=== PATIENT | male | born 1940 | race Caucasian/White ===

== ENCOUNTER 2023-12-05 16:24 | Outpatient (RCR) | payer MEDICARE, SELFPAY | END 2023-12-05 23:59 | disposition home or self-care (01) | LOC: CRHB 16:24 | PROVIDERS: ATTENDING PHYSICIAN Internal Medicine Cardiovascular Disease | DX: I21.4 Non-ST elevation (NSTEMI) myocardial infarction; I25.10 Atherosclerotic heart disease of native coronary artery without angina pectoris | CPT/HCPCS: G0422; G0423 ==

== ENCOUNTER 2024-01-07 17:08 | Outpatient (RCR) | payer MEDICARE, SELFPAY | END 2024-01-07 23:59 | disposition home or self-care (01) | LOC: CRHB 17:08 | PROVIDERS: ATTENDING PHYSICIAN Internal Medicine Cardiovascular Disease | DX: I21.4 Non-ST elevation (NSTEMI) myocardial infarction (principal) | CPT/HCPCS: G0422; G0423 ==

== ENCOUNTER 2024-01-28 17:05 | Outpatient (RCR) | payer MEDICARE, SELFPAY | END 2024-01-28 23:59 | disposition home or self-care (01) | LOC: CRHB 17:05 | PROVIDERS: ATTENDING PHYSICIAN Internal Medicine Cardiovascular Disease | DX: I21.4 Non-ST elevation (NSTEMI) myocardial infarction (principal); I10 Essential (primary) hypertension; E78.00 Pure hypercholesterolemia, unspecified; I34.0 Nonrheumatic mitral (valve) insufficiency; I34.1 Nonrheumatic mitral (valve) prolapse; R94.31 Abnormal electrocardiogram [ECG] [EKG] | CPT/HCPCS: G0422 ==

== ENCOUNTER 2024-03-07 16:33 | Outpatient (RCR) | payer MEDICARE, SELFPAY | END 2024-03-07 23:59 | disposition home or self-care (01) | LOC: CRHB 16:33 | PROVIDERS: ATTENDING PHYSICIAN Internal Medicine Cardiovascular Disease | DX: I25.10 Atherosclerotic heart disease of native coronary artery without angina pectoris (principal); I25.2 Old myocardial infarction | CPT/HCPCS: 93798; G0422 ==

== ENCOUNTER 2024-03-19 15:27 | Outpatient (RCR) | payer MEDICARE, SELFPAY | END 2024-03-19 23:59 | disposition home or self-care (01) | LOC: CRHB 15:27 | PROVIDERS: ATTENDING PHYSICIAN Internal Medicine Cardiovascular Disease; FAMILY PHYSICIAN Internal Medicine | DX: I25.10 Atherosclerotic heart disease of native coronary artery without angina pectoris (principal); I25.2 Old myocardial infarction | CPT/HCPCS: G0422 ==

== ENCOUNTER → 2024-06-24 17:02 | Outpatient (REF) | payer MEDICARE, SELFPAY | LOC: MRI 17:02 | PROVIDERS: ATTENDING PHYSICIAN Psychiatry & Neurology Neurology; FAMILY PHYSICIAN Internal Medicine | DX: M54.16 Radiculopathy, lumbar region (principal) | CPT/HCPCS: 72148 ==

== ENCOUNTER 2024-09-20 17:23 | Emergency (ER) | payer MEDICARE, SELFPAY ==
[2024-09-20 17:26] VITALS: BP 175/73
--- NOTE | 2024-09-20 21:11 | EDRN ---
Pt slipped on ice and struck his head on a cement pot around 1400. No loc, headache, n/v, visual change, dizziness. Pt feels like his usual self.
[2024-09-20 21:15] VITALS: BP 166/90
--- NOTE | 2024-09-20 21:15 | EDRN ---
Pt's gave pt his nighttime seroquel. She says pt did not have his morning bp medication, will give it to him when he gets home.
--- NOTE | 2024-09-20 21:28 | ED.GENMED ---
History of Present Illness
General
Chief Complaint: Head Injury
Source: patient and spouse
Exam Limitations: none
Time Seen by Provider: 09/20/24 21:17
Nursing documentation reviewed up to this point in time: agreed with
History of Present Illness
History of Present Illness:
Patient currently taking Plavix, presents to ED for evaluation after losing balance and falling forward, hitting top of his head against a cement planter. Patient did not lose consciousness. Patient denies headache or neck pain. Denies dizziness.
Denies nausea or vomiting. Denies loss of sensation or weakness. Per spouse at bedside, patient has been behaving appropriately without any significant change.
Past History
Past History
ED Past Medical History: CAD, GERD, HTN, Hypercholesterolemia, Psychiatric (Bipolar, Depression) and Other (Parkinson's, Dementia, Polio, Diverticulitis, Stomach ulcers)
ED Past Surgical History: Appendectomy, Cardiac (CABG X6) and Other (Hernia repair)
Social History
Tobacco: Former smoker
Alcohol: Daily (Beer 1)
Drug: None
Personal:
Living: with family
Review of Systems
Review of Systems
Allergies reviewed?: Yes
All Other Systems: ROS reviewed and negative except as documented in HPI and ROS
Constitutional: Reports no symptoms
Respiratory: Denies trouble breathing
ABD/GI: Reports no symptoms; Denies nausea or vomiting
Musculoskeletal: Reports no symptoms
Skin: Reports other (scalp abrasion/ecchymosis)
Neurological: Reports no symptoms; Denies dizzy, headache or weakness
Phy Exam
Physical Exam
Physical Exam:
Physical Exam
General: no apparent distress, not acutely ill. afebrile
Head: superficial abrasion noted over top of scalp, without active bleeding.
Neck: supple. normal range of motion
Neuro: alert and oriented x 3. no focal neurological deficits. normal speech. normal gait.
Skin: no rash
Psychiatric: well kept. interactive and cooperative
Extremities: no edema. no calf tenderness.
Course
Orders/Labs/Results
Orders:
Orders
09/20/24 17:25
CT Head W/o Iv Contrast Urgent
Comment:
Reason For Exam: head strike +thinners
Vital Signs
Initial and Last Documented VS:
Initial Vital Signs
Temp Pulse Resp BP Pulse Ox
98.9 F 62 18 175/73 98
09/20/24 17:26 09/20/24 17:26 09/20/24 17:26 09/20/24 17:26 09/20/24 17:26
Last Documented Vital Signs
Temp Pulse Resp BP Pulse Ox
98.9 F 65 16 166/90 97
09/20/24 17:26 09/20/24 21:15 09/20/24 21:15 09/20/24 21:15 09/20/24 21:15
MDM/Problems Addressed
MDM/Problems Addressed:
CT head: No acute findings. Patient otherwise is alert, awake, and oriented, and with steady gait, without any acute distress, at time of discharge. Concussion precautions provided to the patient and his spouse. Advised PCP follow-up with any
further concerns.
*Critical Care Note
Total Time (30-74mins, 75-104mins- exclusive of procedures): Not Applicable
ED Attending Note
-
Portions of this chart may have been created with voice recognition software.� Occasional wrong word or��sound alike� substitutions may have occurred due to the inherent limitations of voice recognition software.
Discharge Plan
Departure
Patient Disposition: Home (Routine Discharge)
Date of Disposition: 09/20/24
Time of Disposition: 21:28
Patient with high blood pressure during this ER visit?: Yes
Discharge Problem:
Head injury
Instructions: Head Injury in Adults (DC)
Prescriptions:
No Action
famotidine 20 mg Tablet
20 mg PO HS
carbidopa-levodopa 25-100 mg tablet
1 tab PO BID
ropinirole 0.25 MG tablet
0.25 mg PO DAILY Qty: 0 0RF
lithium carbonate 300 MG capsule
300 mg PO DAILY Qty: 0 0RF
atorvastatin 10 mg Tablet
10 mg PO MOWEFR
quetiapine [Seroquel] 100 mg Tablet
100 mg PO .QAM
quetiapine [Seroquel] 100 mg Tablet
150 mg PO HS
losartan 25 mg Tablet
25 mg PO DAILY
metoprolol succinate 25 mg Tablet Extended Release 24 Hr
25 mg PO HS
hydrocodone-acetaminophen [Vicodin ES] 7.5-300 mg Tablet
1 tab PO QID
cholecalciferol (vitamin D3) 25 mcg (1,000 unit) Tablet
25 mcg PO MOWEFR
Calcium + Vitamin D
1 tab PO DAILY
Probiotic
1 cap PO DAILY
clopidogrel [Plavix] 75 mg Tablet
75 mg PO DAILY
Activity Restrictions/Additional Instructions:
As discussed, please follow-up with your primary care physician with any further concerns.
Interventions
Interventions:
*Risk Screen - Suicide Last Done: 09/20/24 17:26
*General Assessment Last Done: 09/20/24 17:26
*Neglect/Abuse Screening Last Done: 09/20/24 17:26
ED- Fall Risk Assessment Last Done: 09/20/24 21:12
*ED COVID-19 Vaccine History Last Done: 09/20/24 17:26
*Nursing Disposition Last Done: 09/20/24 21:35
ED- Neurological Assessment Last Done: 09/20/24 21:12
ED-Skin Assessment Last Done: 09/20/24 21:12
Discharge Date and Time
Discharge Date/Time: 09/20/24 21:35
Print Language: ARABIC
== END 2024-09-20 21:35 | disposition home or self-care (01) ==
LOC: EMR 17:23
PROVIDERS: EMERGENCY PHYSICIAN Emergency Medicine; FAMILY PHYSICIAN Internal Medicine
DX: S09.90XA Unspecified injury of head, initial encounter (principal); S00.03XA Contusion of scalp, initial encounter; S00.01XA Abrasion of scalp, initial encounter; W01.198A Fall on same level from slipping, tripping and stumbling with subsequent striking against other object, initial encounter; I25.10 Atherosclerotic heart disease of native coronary artery without angina pectoris; I10 Essential (primary) hypertension; F31.9 Bipolar disorder, unspecified; E78.00 Pure hypercholesterolemia, unspecified; K21.9 Gastro-esophageal reflux disease without esophagitis; F32.A Depression, unspecified; F02.83 Dementia in other diseases classified elsewhere, unspecified severity, with mood disturbance; G20.A1 Parkinson's disease without dyskinesia, without mention of fluctuations; K57.90 Diverticulosis of intestine, part unspecified, without perforation or abscess without bleeding; N40.0 Benign prostatic hyperplasia without lower urinary tract symptoms; M19.90 Unspecified osteoarthritis, unspecified site; Z79.02 Long term (current) use of antithrombotics/antiplatelets; Z87.11 Personal history of peptic ulcer disease; Z87.891 Personal history of nicotine dependence; Z95.1 Presence of aortocoronary bypass graft; Z86.12 Personal history of poliomyelitis
CPT/HCPCS: 99284; 70450

== ENCOUNTER 2025-04-19 18:39 | Inpatient (IN) | payer MEDICARE, SELFPAY ==
[2025-04-19 15:49] VITALS: BP 144/72
--- NOTE | 2025-04-19 17:28 | ED.GENMED ---
History of Present Illness
General
Chief Complaint: Fall
Source: patient
Exam Limitations: none
Time Seen by Provider: 04/19/25 17:06
History of Present Illness
History of Present Illness:
84yo left hand dominant male with a history of coronary artery disease, Parkinson's disease, dementia, bipolar disorder, hypertension, hyperlipidemia, chronic back pain on Vicodin presenting with his for evaluation after a fall about 2 hours
ago. Patient was in his barn when he tripped on his feet steps. He fell down 8 steps and landed on his right side. He is unsure if he hit his head but denies any loss of consciousness. Patient's only current complaint is right shoulder pain.
does report that he has been unsteady on his feet for the past few days leading up to this. He is taking Plavix.
Past History
Past History
ED Past Medical History: CAD, GERD, HTN, Hypercholesterolemia, Psychiatric (Bipolar, Depression) and Other (Parkinson's, Dementia, Polio, Diverticulitis, Stomach ulcers)
ED Past Surgical History: Appendectomy, Cardiac (CABG X6) and Other (Hernia repair)
Social History
Tobacco: Former smoker
Alcohol: Daily (Beer 1)
Drug: None
Personal:
Living: with family
Phy Exam
General Physical Exam
General Presentation: well appearing and no apparent distress
General Skin: warm and dry
General Habitus: normal and elderly
General Mental: alert
ENT Exam
ENT Exam: normocephalic and other (No external signs of head trauma. No cervical spine tenderness.)
Eye Exam
Eye Exam: PERRL
Pulmonary Exam
Pulmonary Exam: no respiratory distress
Neurological Exam
Neurological Exam: alert
Musculoskeletal Exam
Musculoskeletal Exam: other (R shoulder: Swelling noted with generalized tenderness. Unable to range joint due to pain. Sensation in axillary nerve distribution intact. 2+ radial pulse.)
Skin Exam
Skin Exam: normal color and warm/dry
Psychiatric Exam
Psychiatric Exam: normal mood/affect
Course
Orders/Labs/Results
Orders:
Orders
04/19/25 Dinner
Regular
At Your Request: Full Participation
04/19/25 15:[address] [CT Head W/o Iv Contrast] Urgent
Comment:
Reason For Exam: fall
04/19/25 15:53
Shoulder, Right, Trauma [CR Shoulder, Trauma - Right] Urgent
Comment:
Reason For Exam: fall
04/19/25 15:54
Cervical Spine wo Contrast CT [CT Cervical Spine W/o Iv Contr] Urgent
Comment:
Reason For Exam: fall
04/19/25 17:26
Sling Right-Treatment ONCE
Hydrocodone 7.5/APAP 325 [[place] 7.5/325] 1 tablet PO NOW STA
04/19/25 17:42
EKG [Electrocardiogram (*1)] Urgent
Reason for Study: Fatigue / Weakness
EKG- Treatment ONCE
04/19/25 18:09
Morphine Sulfate 2 mg IV NOW STA
04/19/25 18:10
Admit/Transfer Patient As Directed
Co-Sign Provider:
Level of Care: Inpatient admission
Assign to:: Medical/Surgical
Physician / Group: nestor garcia
Diagnosis: mech fall w/Right prox humerus fx, hx dementia
Reason for Hospitalization: mech fall w/Right prox humerus fx, hx dementia
Expected length of stay greater than two midnights?: Yes
ELOS- Estimated Length of Stay in days: 3
I certify the patient meets the requirements for IP care: Yes
Code Status As Directed
Resuscitation Status: Do not resuscitate
Reached after discussion with pt or family/Healthcare POA: Yes
Decision communicated with: per
DNR Bracelet Application ONCE
04/19/25 18:12
PRN Pain Medication Management As Directed
May give lesser potent ordered pain med per pt: Yes
preference::
Protocol:: Medication orders for pain may be administered in a
manner that supports deferring to patient preference
when the pt is:
- Requesting an ordered lesser potent pain medication.
Least to most potent pain medications are defined
as: acetaminophen < NSAID < tramadol < opioids
(morphine, oxycodone, hydromorphone).
- Requesting a lesser dose of the same medication IF
ORDERED.
- Requesting a less intrusive route of administration
if both routes are prescribed by the provider (PO <
IV).
04/19/25 18:23
EKG [Electrocardiogram (*1)] Urgent
Reason for Study: QTc Monitoring
04/19/25 19:00
Complete Blood Count/With Diff Urgent
Comprehensive Metabolic Panel Urgent
04/19/25 20:01
Bisacodyl [Dulcolax] 10 mg RECTAL [id number] PRN
Docusate W/Senna [Senokot-S] 1 tablet PO BIDPRN PRN
Morphine Sulfate 2 mg IV Q4HPRN PRN
Ondansetron Injectable [Zofran] 4 mg IV Q6HPRN PRN
Polyethylene Glycol Powder [Miralax] 17 grams PO DAILYPRN PRN
04/19/25 20:01
Activity As Directed
Activity Level: With Assistance
Pneumatic Compression Sleeves As Directed
Type: Knee high
Vital Signs As Directed
Frequency: Per unit guidelines
Pt Eval And Treat Routine
Activity Level: With Assistance
DX Deep Vein Thrombosis Video Routine
04/20/25 Breakfast
NPO
Allow oral meds: Yes
Allow clear liquids: No
NPO with Ice Chips: No
Vital Signs
Initial and Last Documented VS:
Initial Vital Signs
Temp Pulse Resp BP Pulse Ox
98 F 74 16 144/72 97
04/19/25 15:49 04/19/25 15:49 04/19/25 15:49 04/19/25 15:49 04/19/25 15:49
Last Documented Vital Signs
Temp Pulse Resp BP Pulse Ox
97.4 F 82 20 139/75 97
04/19/25 20:13 04/19/25 20:13 04/19/25 20:13 04/19/25 20:13 04/19/25 20:13
MDM/Problems Addressed
Differential Diagnosis Includes:
84yoM here with R shoulder pain after a mechanical fall down the steps. Hx of Parkinson's and dementia. Only blood thinner is Plavix. VSS. He is awake, alert, with a GCS of 15. Significant R shoulder tenderness and decreased ROM on exam. RUE is
neurovascularly intact. Differential diagnosis includes but is not limited to: Fracture, dislocation, soft tissue injury
Imaging obtained in triage. X-rays confirm a proximal humeral fracture. CT head/cervical spine negative for injuries. Sling ordered. does not feel that patient is able to care for himself at home and is requesting placement. Will admit for
PT/case management consults.
*Pulse Oximetry
SaO2: 97
Oxygen Mode of Delivery: Room air
Patient hypoxic: no (97%)
*Critical Care Note
Total Time (30-74mins, 75-104mins- exclusive of procedures): Not Applicable
ED Attending Note
-
Portions of this chart may have been created with voice recognition software.� Occasional wrong word or��sound alike� substitutions may have occurred due to the inherent limitations of voice recognition software.
Discharge Plan
Departure
Patient Disposition: Admit
Date of Disposition: 04/19/25
Time of Disposition: 17:31
Presentation/result/management discussed w/ accepting MD/DO: Hospitalist
Discharge Problem:
Closed fracture of proximal end of right humerus, Fall down steps
Interventions
Interventions:
*Risk Screen - Suicide Last Done: 04/19/25 19:03
*General Assessment Last Done: 04/19/25 19:03
*Neglect/Abuse Screening Last Done: 04/19/25 19:03
*ED- Fall Risk Assessment Last Done: 04/19/25 19:03
*ED COVID-19 Vaccine History Last Done: 04/19/25 19:03
*Nursing Disposition Last Done: 04/19/25 19:57
ED-Musculoskeletal Assessment Last Done: 04/19/25 19:14
ED- Neurological Assessment Last Done: 04/19/25 19:14
ED-Skin Assessment Last Done: 04/19/25 19:15
Discharge Date and Time
Discharge Date/Time: 04/19/25 19:58
--- NOTE | 2025-04-19 17:41 | HPS.HSE ---
Family Physician
-
Family Physician: NOT KNOW UNKNOWN - PT DOES
Chief Complaint
-
Fall, right humerus pain
History of Present Illness
84-year-old male from home where he lives with his who fell approximately 2 hours ago while in his barn tripped on his feet falling down 8 steps landing on his right side on concrete floor. He is unsure if he hit his head however there was no
loss of consciousness he is complaining of right shoulder pain with x-ray showing a right humerus fracture. He denies headache, blurred vision, dizziness, chest pain, palpitations, cough, shortness of breath, abdominal pain, nausea, vomiting,
diarrhea, urinary symptoms. His is currently at bedside states he typically takes Vicodin twice a day but can take up to 4 times a day. He has history of dementia tends to forget while in the hospital to drink fluids especially being on his
lithium for bipolar disorder. The patient is currently oriented to name, place, , history and recent fall.
He has a past medical history chronic back pain on chronic Vicodin Alzheimer's dementia, bipolar disorder with history of agitation, Parkinson's disease, HTN, HLD, CAD/CABG x 6 vessel, GERD/PUD, BPH, former smoker
Medical History
Past Medical History
Past Medical History: Reports Other
Additional Past Medical History:
Dementia, Parkinson's, hypertension, hyperlipidemia, CAD, GERD/PUD, BPH, bipolar disorder, restless leg syndrome, chronic back pain on chronic Vicodin
Past Surgical History: Reports Other
Additional Past Surgical History:
Appendectomy and Cardiac (CABG X6)
Social History
Unable to obtain full social history at this time due to: Dementia
Tobacco: Non-smoker
Alcohol: None
Drug: None
Personal:
Living: With Family
Family History
Family History: Not pertinent
Allergies / Home Medications
Allergies reflects when Allergies were last updated in [facility].
Home Medications with original date entered in [facility]
Allergy/Medication List:
Allergies
Allergy/AdvReac Type Severity Reaction Status Date / Time
ranitidine Allergy Unknown Verified 09/20/24 17:26
Home Medications
carbidopa 25 mg-levodopa 100 mg tablet 1 tab PO DAILY Neurological Condition 03/30/23
famotidine 20 mg tablet 20 mg PO QPM Gastrointestinal Issue 03/30/23
ropinirole 0.25 mg tablet 0.25 mg PO DAILY #0 tabs 04/16/23
atorvastatin 10 mg tablet 10 mg PO MOWEFR 09/20/24
cholecalciferol (vitamin D3) 25 mcg (1,000 unit) tablet 25 mcg PO MOWEFR 09/20/24
clopidogrel 75 mg tablet (Plavix) 75 mg PO DAILY 09/20/24
hydrocodone 7.5 mg-acetaminophen 300 mg tablet 1 tab PO AMHS 09/20/24
losartan 25 mg tablet 25 mg PO DAILY 09/20/24
metoprolol succinate 25 mg tablet,extended release 24 hr 25 mg PO HS 09/20/24
quetiapine 100 mg tablet (Seroquel) 100 mg PO DAILY@0800 09/20/24
quetiapine 100 mg tablet (Seroquel) 200 mg PO HS 09/20/24
acetaminophen 500 mg tablet 500 mg PO BID 04/19/25
calcium 600 mg (as carbonate)-vitamin D3 20 mcg (800 unit) tablet (Caltrate with Vitamin D3) 1 tab PO DAILY 04/19/25
fluticasone propionate 50 mcg/actuation nasal spray,suspension 1 spray intranasal DAILYPRN PRN allergies 04/19/25
lithium carbonate 300 mg capsule 300 mg PO BID Mental Health/Anxiety 04/19/25
therapeutic multivitamin 1 tab PO DAILY 04/19/25
Review of Systems
-
History Source: Patient and Family ( at bedside)
A 12 point ROS was completed and negative except as noted: Yes
Constitutional: Denies Fever or Chills
EENT: Denies Sore Throat or Runny Nose
Respiratory: Denies Cough or Trouble Breathing
Cardiac: Denies Chest Pain, Diaphoresis, Palpitations or Syncope
Abdomen/GI: Denies Abdominal Pain, Nausea, Vomiting, Diarrhea, Constipated or Bloody Stools
: Denies Dysuria, Frequency, Flank Pain, Incontinence or Difficulty Voiding
Musculoskeletal: Reports Joint Pain (Right proximal humerus pain); Denies Edema
Skin: Denies Itching or Rash
Neurological: Denies Dizzy, Headache or Weakness
Endocrine: Reports No Symptoms
Hematologic/Lymphatic: Reports No Symptoms
Psych: Reports Calm
Physical Exam
Vital Signs
Vital Signs
Temp Pulse Resp BP Pulse Ox
98 F 74 16 144/72 97
04/19/25 15:49 04/19/25 15:49 04/19/25 15:49 04/19/25 15:49 04/19/25 17:29
Physical Exam
General: Conversant and Pain (Right shoulder); No Fever or Chills
HEENT: NormoCephalic, Anicteric, Moist mucous membranes, Atraumatic, PERRLA, [place] Conjunctivae, No Ptosis, Neck Nontender and Other (Cervical, thoracic, lumbar negative spinal tenderness)
Respiratory: Clear; No Wheezes, Rales or Rhonchi
Cardiac: S1/S2 and Regular Rhythm; No Murmur, Rub, Gallop or Peripheral Edema
Breast: Deferred by me
GI: Soft, Non Tender, Non Distended, Normal Bowel Sounds and No Hepatosplenomegaly
Rectal: Deferred by Provider
Genito-urinary: Deferred by me
Musculoskeletal: No Clubbing, No Cyanosis, No Edema and Other (Limited range of motion right arm due to proximal humerus fracture distal neurovascular status intact, positive cap refill skin pink and warm)
Skin: Warm and Dry; No Rash
Neuro: AO x 3 (At present time to name, place, year, , recent fall. Per at bedside memory waxes and wanes due to dementia), Cranial Nerves Intact and No Sensory Deficits; No Slurred Speech, Facial Droop, Tremors or Sedated
Psych: Calm
Data Reviewed
-
Diagnostic Radiology: Report Reviewed by me
Impression/Plan
-
Impression/plan:
Admit to MedSurg
#Mechanical fall due to Parkinson's with Right proximal humerus fracture
- Consult Ortho Dr. Hodges made aware
- IV morphine severe pain
-Tylenol as needed
-pain control patient on chronic Vicodin twice daily can take up to 3 times daily
- Sling to right shoulder
-N.p.o. after midnight for Ortho eval
- PT consult, case management consult
CT head: No acute intracranial abnormality. Decreased attenuation periventricular deep white matter compatible with senescent or chronic small vessel disease
CT cervical spine: Degenerative changes no acute fracture
Enlarged right lobe of thyroid with deviation of trachea to the left recommend thyroid ultrasound
#Leukocytosis likely reactive from fall
WBC 20 prior history of WBC 15-18
- Will monitor for fever
#Incidental right thyroid lobe enlargement with deviation of trachea
-Check thyroid ultrasound as outpatient
#Parkinson's Disease
- Continue current Sinemet
#Chronic back pain on chronic Vicodin
- Continue Vicodin twice daily
#Senile Dementia with Behavioral Disturbance
#Bipolar Depression
-Continue lithium, Seroquel
#HTN
- Continue losartan 25 mg daily, metoprolol succinate 25 mg at bedtime
#HLD
#GERD/PUD
- Continue Pepcid 20 mg every afternoon
#BPH
-No reported meds
#Restless leg syndrome
Continue Requip 0.25 mg daily
#CAD/CABG x 6 vessel
Will hold Plavix 75 mg daily
Continue atorvastatin 10 mg Sunday
DVT Prophylaxis: SCDs
Code Status: DNR
--- NOTE | 2025-04-19 18:48 | W.PN.UPDATE ---
Update Note
Progress Note Update
This is an addendum to the H&P written by Elizabeth Kaiser on 04/19/2025. �Patient seen and examined independently with PHARMACY BILLING ADJUDICATOR.
84-year-old male past medical history of Parkinson's disease, chronic back pain, dementia, bipolar depression, hypertension, hyperlipidemia, GERD/PUD, BPH, CAD status post distant CABG, presenting with trip and fall down 8 steps onto concrete.
Right shoulder pain.
Patient with occasional episodes of chest discomfort occurring for few minutes at a time nonexertional but this has not occurred in the past week or so.
Vital signs normal.
CT head shows no acute abnormality. �CT C-spine negative. �Shoulder x-ray shows mildly impacted fracture of the base of the head and neck of the proximal right humerus with some mild splaying of several small fracture fragments.
Patient with mechanical fall due to Parkinson's resulting in proximal right humerus fracture with splaying of several small fracture fragments.
Continue Vicodin. �Sling to be placed as needed morphine as needed. �N.p.o. postmidnight for potential surgery tomorrow. Hold Plavix. �Ortho consulted. �Patient at elevated risk for post cardiac complications given history of CABG but appears well
compensated without any cardiac symptoms. �Check EKG.
[2025-04-19] MEDS: MORPHINE SULFATE 2 MG IV (19:01)
[2025-04-19 19:11] VITALS: BP 110/76
[2025-04-19 19:16] LABS: Hematocrit 40.8 % (39.0-52.0); Hemoglobin 13.6 g/dL (13.0-18.0); Mean Corp Hgb Conc. 33.3 g/dL (33.0-37.0); Mean Corpuscular Volume 97.4 fL (80.0-94.0); Nucleated Red Blood Cells % 0 % (-); Platelet Count 250 10^3/uL (130-400); Red Cell Dist. Width 12.0 % (11.5-14.5)
[2025-04-19 19:29] LABS: ALT (SGPT) < 10 U/L (0-50); AST (SGOT) 16 U/L (17-59); Albumin 4.5 g/dl (3.5-5.0); Alkaline Phosphatase 121 U/L (38-126); Blood Urea Nitrogen 24 mg/dl (9-20); Calcium 9.9 mg/dl (8.4-10.2); Carbon Dioxide 27 mmol/L (22-30); Chloride 106 mmol/L (98-107); Glucose 134 mg/dl (70-99); Potassium 4.5 mmol/L (3.5-5.1); Sodium 137 mmol/L (135-145); Total Protein 7.0 g/dl (6.3-8.2); eGFR 45.06
[2025-04-19 20:13] VITALS: BP 139/75; BMI 27.4
[2025-04-19] MEDS: TYLENOL 500 MG PO (20:29)
[2025-04-19] MEDS: ESKALITH REGULAR RELEASE 300 MG PO (21:03)
[2025-04-19] MEDS: NORCO 7.5/325 1 TABLET PO (22:33)
[2025-04-19] MEDS: TOPROL XL 25 MG PO (22:34)
[2025-04-19] MEDS: SEROQUEL 200 MG PO (22:34)
[2025-04-19 23:00] VITALS: BP 129/80
[2025-04-20] MEDS: MORPHINE SULFATE 2 MG IV ×2 (06:00→10:23)
--- NOTE | 2025-04-20 06:13 | CON.ORTHO ---
Consultation
-
Date/Time Consultation Requested: 04/19/2025 @ Unknown time
Date/Time Consultation Performed: 04/20/2025 @ 6:00 AM
Requesting Provider: Clare Sandoval
Performing Provider: Emeka Gonzalez PA-C for Dr. Forrest Hodges MD
Reason for Consultation: Right Proximal Humerus Fx
Consultation - Orthopedics
History
Orthopedic Surgery Note
CC: Right Shoulder Pain x Mechanical Fall Sunday04/19/2025
HPI: The patient is an 84-year-old [id number] male with a PMH significant for Parkinson disease, Alzheimer's dementia, bipolar disorder with history of agitation, chronic back pain on Vicodin, HTN, HLD, CAD/CABG x 6 vessel, GERD/PUD, BPH,
and former smoker who presented to [facility] ED after sustaining a mechanical fall yesterday, 04/19/2025. He was in his barn when he unfortunately tripped on his feet falling down 8 steps landing on his right shoulder/upper extremity. He is unsure if he
hit his head, but denies any loss of consciousness. He reports pain localized to his right shoulder. He denies any pain elsewhere. X-rays were obtained in the ED, revealing a right proximal humerus fracture. He was placed into with sling and
Orthopedic surgery was consulted for further recommendations. He denies any paresthesias. Of note, he is on Plavix. He lives in a two-story home with his .
PMH/PSH:
ED Past Medical History: CAD, GERD, HTN, Hypercholesterolemia, Psychiatric (Bipolar, Depression) and Other (Parkinson's, Dementia, Polio, Diverticulitis, Stomach ulcers)
ED Past Surgical History: Appendectomy, Cardiac (CABG X6) and Other (Hernia repair)
Medications: Reviewed.
Family History: Family history was reviewed. Noncontributory.
Social history: Former smoker, no illicit drugs. Lives in a two-story home with his .
Exam
General appearance: Pleasant. No acute distress.
Head: Normocephalic/atraumatic
Nose: No lesions or discharge.
Skin: No obvious rashes or open wounds
Lungs: No audible wheezing, no cough or sputum production
Musculoskeletal:
RUE:
Physical examination of the right shoulder is limited, secondary to fracture status. Sensation is intact to light touch over the axillary nerve distribution and capillary refill is less than 2 seconds. (+) Tenderness to palpation over the right
shoulder and proximal humerus. Shoulder range of motion was deferred secondary to known fracture. Digital ROM intact. Elbow and Wrist ROM intact. Sling to RUE.
Imaging:
Xrays: CR Shoulder, Trauma - RIGHT was performed at [facility] on 04/19/2025 and was made available for my review today. Findings and Impression: There is a mildly impacted fracture of the base of the head and neck of the proximal right
humerus with some mild splaying of several small fracture fragments. Sternal wires are noted.
Assessment: 84-year-old [id number] male with a PMH significant for Parkinson disease, Alzheimer's dementia, bipolar disorder with history of agitation, chronic back pain on Vicodin, HTN, HLD, CAD/CABG x 6 vessel, GERD/PUD, BPH, and former
smoker with a RIGHT impacted proximal humerus fracture.
Plan:
1) Radiographs were reviewed with Dr. Miller; at this time we will proceed with non-operative management.
2) Sling immoblization to RUE; NWB RUE.
3) Ice therapy for edema control. Pain control per primary team.
4) Digital ROM as tolerated.
5) Follow-up as an outpatient in 1 week for serial radiographs for position check. If there is interval displacement of the fracture, surgical management may be further discussed. All questions were answered. Plan of care discussed with patient's
spouse Elizbaeth. Orthopedic surgery will sign off at this time. D/c information updated. Please re-engage with any further questions or concerns.
Allergies / Home Medications
Allergy/AdvReac Type Severity Reaction Status Date / Time
ranitidine Allergy Unknown Verified 09/20/24 17:26
�Medication �Instructions �Recorded
carbidopa 25 mg-levodopa 100 mg 1 tab PO DAILY Neurological 03/30/23
tablet Condition
famotidine 20 mg tablet 20 mg PO QPM Gastrointestinal Issue 03/30/23
ropinirole 0.25 mg tablet 0.25 mg PO DAILY #0 tabs 04/16/23
atorvastatin 10 mg tablet 10 mg PO MOWEFR 09/20/24
cholecalciferol (vitamin D3) 25 25 mcg PO MOWEFR 09/20/24
mcg (1,000 unit) tablet
clopidogrel 75 mg tablet (Plavix) 75 mg PO DAILY 09/20/24
hydrocodone 7.5 mg-acetaminophen 1 tab PO AMHS 09/20/24
300 mg tablet
losartan 25 mg tablet 25 mg PO DAILY 09/20/24
metoprolol succinate 25 mg 25 mg PO HS 09/20/24
tablet,extended release 24 hr
quetiapine 100 mg tablet (Seroquel) 100 mg PO DAILY@0800 09/20/24
quetiapine 100 mg tablet (Seroquel) 200 mg PO HS 09/20/24
acetaminophen 500 mg tablet 500 mg PO BID 04/19/25
calcium 600 mg (as 1 tab PO DAILY 04/19/25
carbonate)-vitamin D3 20 mcg (800
unit) tablet (Caltrate with
Vitamin D3)
fluticasone propionate 50 1 spray intranasal DAILYPRN PRN 04/19/25
mcg/actuation nasal allergies
spray,suspension
lithium carbonate 300 mg capsule 300 mg PO BID Mental Health/Anxiety 04/19/25
therapeutic multivitamin 1 tab PO DAILY 04/19/25
Vital Signs / Lab Results
Temp Pulse Resp BP Pulse Ox
98.4 F 97 18 129/80 97
04/19/25 23:00 04/19/25 23:00 04/19/25 23:00 04/19/25 23:00 04/19/25 23:00
04/19/25 19:00
04/19/25 19:00
--- NOTE | 2025-04-20 06:32 | PTCARENOTE ---
Patient admitted to unit @2000 via stretcher, ambulate to bed with assist x1 with a rolling walker. Patient AAOx2, oriented to unit, call carrasquillo in reach, bed alarm in place. Skin assessment completed, sling in place to right shoulder.
[2025-04-20 07:09] VITALS: BP 102/61
[2025-04-20] MEDS: ESKALITH REGULAR RELEASE 300 MG PO ×2 (08:24→21:42)
[2025-04-20] MEDS: REQUIP 0.25 MG PO (08:24)
[2025-04-20] MEDS: SINEMET 25-100 1 TABLET PO (08:24)
[2025-04-20] MEDS: NORCO 7.5/325 1 TABLET PO ×2 (08:24→21:47)
[2025-04-20] MEDS: TYLENOL 500 MG PO ×2 (08:25→21:43)
[2025-04-20] MEDS: THERAGRAN 1 TABLET PO (08:25)
[2025-04-20] MEDS: SEROQUEL 100 MG PO (08:25)
[2025-04-20 09:42] LABS: Hematocrit 34.0 % (39.0-52.0); Hemoglobin 11.4 g/dL (13.0-18.0); Mean Corp Hgb Conc. 33.5 g/dL (33.0-37.0); Mean Corpuscular Volume 96.3 fL (80.0-94.0); Platelet Count 220 10^3/uL (130-400); Red Cell Dist. Width 11.9 % (11.5-14.5)
[2025-04-20 10:14] LABS: Estimated Creatinine Clearance 34 ml/min; eGFR 48.95
[2025-04-20 10:33] LABS: Blood Urea Nitrogen 28 mg/dl (9-20); Calcium 9.5 mg/dl (8.4-10.2); Carbon Dioxide 24 mmol/L (22-30); Chloride 106 mmol/L (98-107); Glucose 133 mg/dl (70-99); Lithium 1.5 mmol/L (0.6-1.2); Potassium 4.3 mmol/L (3.5-5.1); Sodium 136 mmol/L (135-145)
[2025-04-20 11:06] LABS: Vitamin B12 277 pg/ml (239-931)
[2025-04-20 12:09] VITALS: BP 108/66; BP 168/139; BP 85/63
[2025-04-20] MEDS: NSS 1000 IV (13:43)
--- NOTE | 2025-04-20 13:44 | CS.PSYCHR ---
Consult Summary - Psychiatry
-
Pt is an 84 yo male with history of Bipolar d/o, dementia- likely Alzheimer's type, Parkinson's dz, chronic back pain, HTN, HLD, CAD/CABG x 6, GERD/PUD, BPH, who presented after falling down a flight of 8 steps in his barn, injuring his Right
shoulder/arm. Pt noted to be unsteady on his feet the past few days. Pt seen resting in bed, sleepy, waking intermittently, reportedly was given morphine, at bedside providing history. Pt reportedly has a long history of Bipolar d/o, also
diagnosed with Parkinson's and dementia about 12 years ago per . She reports pt has abrupt mood changes, can become angry, has hx of being manic and aggressive. She reports pt was last hospitalized for psychiatric tx Apr 2023; has been stable,
managed by his PCP, until recent months. reports since January, pt has been more unstable in mood/irritable. [place] dose was put back to 300 mg BID, which has been pt's usual dose for many years. states pt normally hydrates himself well,
but not taking in as much the past couple days. [place] level was drawn this morning at 9:24 am, apparently after pt's morning dose of [place] was given per the MAR at 8:24 am. [place] level 1.5. TSH normal. BUN/Creat mildly elevated. QTcB 444,
462 yesterday pm.
Psych Hx: Bipolar d/o for many years, hx of key with psychosis per ; last inpatient at [facility] [place]-psych unit 04/2023 for one week. Maintained for years on [place] 300 mg BID, on Seroquel since 2022, managed by PCP
Dx with Alzheimer's dementia vs Parkinson's dementia; hx of aggressive behavior, last in 2022.
SH: lives with , together 60 years; worked in [employer]. No hx of substance use
MSE: reclining in bed, in not distress, sleepy, waking intermittently, calm, withdrawn. No agitation, no signs of mood disturbance or psychosis. No tremor or EPS evident. Insight appears limited
Imp: Bipolar d/o by history, reportedly more irritable in recent months per
Dementia, likely Alzheimer's type vs dementia of Parkinson's dz
Rec: continue current psychotropic medications ([place] and Seroquel). Re-check [place] level in AM, (before AM lithium dose), will likely be in the therapeutic range with continued hydration
Will follow
[2025-04-20 15:14] VITALS: BP 125/62
--- NOTE | 2025-04-20 15:17 | W.PN.HOSP.TC ---
Today's Communication/Plan
-
IV fluids
BMP in the morning
[place] levels in the morning
PT evaluation
Discharge planning
Assessment / Plan
Assessment / Plan
84-year-old with trip and fall down [address] -cervical spine-degenerative changes. No fracture. Beam hardening artifact. Likely enlarged right lobe of thyroid
Right shoulder-mild impacted fracture at the base of the head and neck of the proximal right humerus with some mild splaying of several small fracture fragments.
Head CT-no acute abnormality
Sleepy but able to communicate.
Cardiovascular sternal sounds appreciated
Chest clear to auscultation
Right shoulder with mild edema noted tenderness
# Traumatic right shoulder fracture-nonoperative management with sling immobilization to right upper extremity, nonweightbearing right upper extremity, ice for edema control and pain control. Digital range of motion as tolerated. Follow-up as an
outpatient in 1 week with x-rays for position check. If there is interval displacement of the fracture surgical management may be further discussed at that time per orthopedics.
Pain control with Vicodin
Lidocaine patch
Discontinue morphine
# Leukocytosis-check urinalysis. Rpt CBC trending down possibly stress related?
# Acute kidney injury-IV fluids . Hold losartan
# Coronary artery disease with history of CABG- Plavix, metoprolol.
# Parkinson disease-continue Sinemet
# Hyperlipidemia-continue statin
# Hypertension-Continue metoprolol. Hold losartan
# History of polio
# Dementia with behavioral disturbance
# Right lobe of thyroid-ultrasound as outpatient. Normal TSH
# Bipolar disease- Continue Seroquel, [place]. [place] levels high. Continue lithium and check levels in the morning. Psychiatry evaluation appreciated
# GERD/PUD-does not seem to be on H2 blockers or PPIs outpatient
# Diverticulosis
# Ex Smoker
# DVT prophylaxis-SCDs
# DNR
Discussed with nursing
Discussed with case management
Discussed with patient's at bedside
Part of this note was created using voice recognition system. Occasional wrong word or��sound alike� substitutions may have inadvertently occurred due to the inherent limitations of voice recognition software. If noted kindly bring it to my
attention for correction.
Anticipated Discharge: Within 24 hours
Subjective/Interval History
-
Date of Service: April 20, 2025
Objective Data
-
Labs:
Laboratory Results
04/20/25
09:24
WBC 16.1 H
Hgb 11.4 L
Hct 34.0 L
Plt Count 220
Sodium 136
Potassium 4.3
Chloride 106
Carbon Dioxide 24
BUN 28 H
Creatinine 1.4 H
Glucose 133 H
Calcium 9.5
Vital Signs:
Vital Signs
Temp Pulse Resp BP Pulse Ox
98.7 F 85 20 125/62 99
04/20/25 15:14 04/20/25 15:14 04/20/25 15:14 04/20/25 15:14 04/20/25 15:14
I&O
04/19/25 04/20/25 04/21/25
06:59 06:59 06:59
Intake Total 240 / 240
Output Total 150 / 150
Balance 90 / 90
[2025-04-20] MEDS: LIDOCAINE 4% PATCH 1 PATCH TOPICAL (15:34)
[2025-04-20] MEDS: PEPCID 20 MG PO (17:56)
[2025-04-20 18:05] LABS: Urine Character Clear (Clear)
[2025-04-20 18:19] LABS: Urine Red Blood Cell 0-2 /HPF (0-2)
[2025-04-20] MEDS: SENOKOT-S 1 TABLET PO (21:43)
[2025-04-20] MEDS: REMOVE LIDOCAINE PATCH 1 PATCH REMOVE (21:43)
[2025-04-20] MEDS: LIPITOR 10 MG PO (21:47)
[2025-04-20] MEDS: VITAMIN D3 (cholecalciferol) 25 MCG PO (21:47)
[2025-04-20] MEDS: TOPROL XL 25 MG PO (22:59)
[2025-04-20] MEDS: SEROQUEL 200 MG PO (22:59)
[2025-04-20 23:28] VITALS: BP 141/82
[2025-04-21] MEDS: NSS 1000 IV (05:11)
[2025-04-21] MEDS: NORCO 7.5/325 1 TABLET PO ×2 (05:13→15:10)
[2025-04-21 07:34] VITALS: BP 136/74
[2025-04-21 08:08] LABS: Hematocrit 31.2 % (39.0-52.0); Hemoglobin 10.6 g/dL (13.0-18.0); Mean Corp Hgb Conc. 34.0 g/dL (33.0-37.0); Mean Corpuscular Volume 96.3 fL (80.0-94.0); Platelet Count 195 10^3/uL (130-400); Red Cell Dist. Width 11.7 % (11.5-14.5)
[2025-04-21 08:52] LABS: Blood Urea Nitrogen 29 mg/dl (9-20); Calcium 9.4 mg/dl (8.4-10.2); Carbon Dioxide 22 mmol/L (22-30); Chloride 109 mmol/L (98-107); Estimated Creatinine Clearance 37 ml/min; Glucose 126 mg/dl (70-99); Lithium 1.5 mmol/L (0.6-1.2); Potassium 4.5 mmol/L (3.5-5.1); Sodium 138 mmol/L (135-145); eGFR 53.50
[2025-04-21] MEDS: REQUIP 0.25 MG PO (09:23)
[2025-04-21] MEDS: SINEMET 25-100 1 TABLET PO (09:23)
[2025-04-21] MEDS: LIDOCAINE 4% PATCH 1 PATCH TOPICAL (09:23)
[2025-04-21] MEDS: VITAMIN B-12 1000 MCG PO (09:24)
[2025-04-21] MEDS: THERAGRAN 1 TABLET PO (09:24)
[2025-04-21] MEDS: TYLENOL 500 MG PO ×2 (09:24→20:41)
[2025-04-21] MEDS: SENOKOT-S 1 TABLET PO ×2 (09:24→20:41)
[2025-04-21] MEDS: PLAVIX 75 MG PO (09:24)
[2025-04-21] MEDS: MIRALAX 17 GRAMS PO (09:25)
[2025-04-21] MEDS: SEROQUEL PO (09:29)
[2025-04-21] MEDS: ESKALITH REGULAR RELEASE 300 MG PO (09:29)
--- NOTE | 2025-04-21 10:20 | PTOTSP ---
Dysphagia Evaluation
Patient has multiple dysphagia risk factors (i.e., Alzheimer's dementia, Parkinsons, GERD, history of hiatal hernia) but currently is functioning (i.e., mild oral, no signs of pharyngeal dysphagia) at reported baseline in regards to swallowing.
Recommend:
1. IDDSI 6 Soft/Bite Sized, Thin Liquids
2. Medications: as best tolerated
3. Assistance as needed given R arm in sling, supervision
4. Strategies: slow rate, reduce distractions with meals, reflux precautions
No further dysphagia tx warranted. Please reconsult as appropriate.
--- NOTE | 2025-04-21 10:51 | W.PN.HOSP.TC ---
Addendum entered and electronically signed by Lorraine Howell MD 04/21/25 18:15:
Add antibiotics for pneumonia
Spoke to patient's and updated
She is looking to try to get PA for the patient to go to [place]
Original Note:
Today's Communication/Plan
-
Stop IVF after this bag
Discharge planning.
Assessment / Plan
Assessment / Plan
84-year-old with trip and fall down [address] -cervical spine-degenerative changes. No fracture. Beam hardening artifact. Likely enlarged right lobe of thyroid
Right shoulder-mild impacted fracture at the base of the head and neck of the proximal right humerus with some mild splaying of several small fracture fragments.
Head CT-no acute abnormality
Sleepy but able to communicate.
Cardiovascular sternal sounds appreciated
Chest clear to auscultation
Right shoulder with mild edema noted tenderness
# Traumatic right shoulder fracture-nonoperative management with sling immobilization to right upper extremity, nonweightbearing right upper extremity, ice for edema control and pain control. Digital range of motion as tolerated. Follow-up as an
outpatient in 1 week with x-rays for position check. If there is interval displacement of the fracture surgical management may be further discussed at that time per orthopedics.
Pain control with Vicodin
Lidocaine patch
Discontinue morphine
# Leukocytosis-Urine analysis without any changes of UTI. Check chest x-ray
# Acute kidney injury-stop IV fluids MUSA resolved
# Coronary artery disease with history of CABG- Plavix, metoprolol.
# Parkinson disease-continue Sinemet
# Hyperlipidemia-continue statin
# Hypertension-Continue metoprolol. Hold losartan
# History of polio
# Dementia with behavioral disturbance
# Right lobe of thyroid-ultrasound as outpatient. Normal TSH
# Bipolar disease- Continue Seroquel, [place]. [place] levels high. Psychiatry evaluation appreciated. [place] changed to 300 mg in the morning from 300 mg twice daily and 150 in the evening
Seroquel dose in the morning also reduced from 100 mg daily to 50 mg daily
# GERD/PUD-does not seem to be on H2 blockers or PPIs outpatient
# Diverticulosis
# Ex Smoker
# DVT prophylaxis-SCDs
# DNR
Discussed with nursing
Discussed with case management
Part of this note was created using voice recognition system. Occasional wrong word or��sound alike� substitutions may have inadvertently occurred due to the inherent limitations of voice recognition software. If noted kindly bring it to my
attention for correction.
Anticipated Discharge: Within 24 hours
Subjective/Interval History
-
Date of Service: April 21, 2025
Objective Data
-
Labs:
Laboratory Results
04/21/25
07:53
WBC 16.3 H
Hgb 10.6 L
Hct 31.2 L
Plt Count 195
Sodium 138
Potassium 4.5
Chloride 109 H
Carbon Dioxide 22
BUN 29 H
Creatinine 1.3
Glucose 126 H
Calcium 9.4
Vital Signs:
Vital Signs
Temp Pulse Resp BP Pulse Ox
98.5 F 84 18 136/74 98
04/21/25 07:34 04/21/25 07:34 04/21/25 07:34 04/21/25 07:34 04/21/25 07:34
I&O
04/20/25 04/21/25 04/22/25
06:59 06:59 06:59
Intake Total 240 / 240 1300 / 1300
Output Total 150 / 150
Balance 90 / 90 1300 / 1300
--- NOTE | 2025-04-21 11:26 | W.PN.UPDATE ---
Update Note
Progress Note Update
Pt seen, reviewed with nursing staff. Pt more alert this morning, but has been confused overall. Pt currently calm, eating breakfast, c/o pain in his back and injured arm, in no acute distress. Making eye contact, not able to provide much
information. [place] level repeated this morning before dosing remains at 1.5. Creatinine has normalized.
Imp: Bipolar d/o by history, reportedly more irritable in recent months, appears stable today; [place] level remains high at 1.5
Dementia, likely Alzheimer's type vs dementia of Parkinson's dz
Rec: taper [place] to 300 mg AM and 150 mg HS. Will taper daytime Seroquel to 50 mg; will continue Seroquel 200 mg HS, which was his reported home dose for the past 2 years
Will follow
[2025-04-21] MEDS: SENOKOT 17.2 MG PO (11:42)
[2025-04-21] MEDS: MILK OF MAGNESIA 30 ML PO (11:42)
[2025-04-21] MEDS: SEROQUEL 50 MG PO (11:42)
--- NOTE | 2025-04-21 14:47 | CM ---
All facilities that were referred to for SNF denied as they are unable to accommodate behaviors. Placed a call to patient's , Elizabeth, who stated that she would like for patient to go to [facility] in [place]. Placed a call to Huong in
admissions who stated that she will have someone out to evaluate patient tomorrow and will update CM on everything else needed for his admission. She stated that she prefers for patient to be in memory care not at a SNF post this admission. CM
contact information was provided.
Plan: Case management will continue to follow and assist with discharge planning. [facility]/ [facility] in [place].
[2025-04-21 16:27] VITALS: BP 134/75
[2025-04-21] MEDS: PEPCID 20 MG PO (17:30)
[2025-04-21] MEDS: NSS IV (20:40)
[2025-04-21] MEDS: STERILE WATER FOR INJECTION 10 ML IV (20:41)
[2025-04-21] MEDS: VIBRAMYCIN 100 MG PO (20:41)
[2025-04-21] MEDS: REMOVE LIDOCAINE PATCH REMOVE (20:41)
[2025-04-21] MEDS: ROCEPHIN 1000 MG IV (20:41)
[2025-04-21] MEDS: TOPROL XL 25 MG PO (22:04)
[2025-04-21] MEDS: ESKALITH 150 MG PO (22:07)
[2025-04-21] MEDS: SEROQUEL 200 MG PO (22:07)
[2025-04-21 23:00] VITALS: BP 126/65
[2025-04-22 06:19] LABS: Hematocrit 31.4 % (39.0-52.0); Hemoglobin 10.4 g/dL (13.0-18.0); Mean Corp Hgb Conc. 33.1 g/dL (33.0-37.0); Mean Corpuscular Volume 97.5 fL (80.0-94.0); Platelet Count 182 10^3/uL (130-400); Red Cell Dist. Width 11.8 % (11.5-14.5)
[2025-04-22 07:00] VITALS: BP 149/76
[2025-04-22] MEDS: LIDOCAINE 4% PATCH 1 PATCH TOPICAL (07:54)
[2025-04-22] MEDS: VITAMIN B-12 PO ×2 (07:54→11:09)
[2025-04-22] MEDS: VIBRAMYCIN PO ×3 (07:54→22:18)
[2025-04-22] MEDS: SINEMET 25-100 PO ×2 (07:54→11:10)
[2025-04-22] MEDS: PLAVIX PO ×2 (07:54→11:10)
[2025-04-22] MEDS: TYLENOL PO ×3 (07:56→22:55)
[2025-04-22] MEDS: THERAGRAN PO ×2 (07:56→11:10)
[2025-04-22] MEDS: NORCO 7.5/325 PO (07:56)
[2025-04-22] MEDS: REQUIP PO ×2 (07:57→11:10)
[2025-04-22] MEDS: MIRALAX PO ×2 (07:57→11:10)
[2025-04-22] MEDS: SEROQUEL PO ×3 (07:57→22:55)
[2025-04-22] MEDS: SENOKOT-S PO ×3 (07:58→22:18)
--- NOTE | 2025-04-22 11:11 | PTCARENOTE ---
Pt unable to swallow morning medications, coughing/choking on pills and spitting them out. pt swishing water and puree around in mouth and not following direction to swallow substances. MD made aware. Speech made aware. Pt has not had a BM. Abd xray
ordered. Family @bedside. Will continue to monitor.
--- NOTE | 2025-04-22 12:33 | W.PN.UPDATE ---
Update Note
Progress Note Update
patient seen chart reviewed. spoke with nursing. patient known to me from prior admits to . the patient's was at bedside and provided additional hx. the patient was dozing in and out of sleep having just returned from radiology. he was
pleasant upon approach but did not engage in much conversation. earlier this am patient had been rather agitated. nursing tells me he nearly choked on am meds hence did not get any of those meds. speech will see him later today. was concerned
re abdomen 'looking different' and patient seemed to be in discomfort hence flat plate which revealed only moderate stool. told me of patient's hx of affective lability. typically he will have two episodes of what sounds like dysphoric key
and then in winter a long period of depression. he had been quite combative and even physically aggressive to her in the past but lithium 300 mg daily and seroquel 50/200 seems to have helped him .she inc lithium recently to 600 mg daily and that
coincided w a period when he stopped eating drinking plus his losartan and the two together may have contributed to inc in lith to 1.5. there is also note in chart that lith level may have been done after am dose. since he has not received any lith
today will get stat level and go from there. continue seroquel for now. monitor re sedation. check b12 folate and vit d tsh is normal. patient family has very strong hx of affective lability in cluding his daughter. will follow
[2025-04-22 13:06] LABS: Lithium 1.3 mmol/L (0.6-1.2)
--- NOTE | 2025-04-22 13:09 | CM ---
CM met with pt's (pt was sleeping soundly), along with Huong Osman of [facility]. Pt's is interested in admission to [facility].
Forms left on chart for Dr. Howell; mostly complete, but require her signature.
Plan: CM to follow to coordinate transfer to [facility] when medically stable.
[2025-04-22] MEDS: NORCO 7.5/325 1 TABLET PO (14:52)
[2025-04-22 15:00] VITALS: BP 147/81
--- NOTE | 2025-04-22 15:07 | W.PN.UPDATE ---
Update Note
Progress Note Update
lithium level is still 1.3. this is too high. will hold lithium until level is around o.7/.8 recheck in am. when level has been elevated for some time it can take longer to come down. sent message to [facility] to please give heads up. i will try
to call her but in case i do not reach her.
[2025-04-22] MEDS: D5LR 1000 IV (15:59)
[2025-04-22 16:02] VITALS: BP 147/81; PULSE 97; O2SAT 95
--- NOTE | 2025-04-22 16:18 | W.PN.HOSP.TC ---
Today's Communication/Plan
-
Continue antibiotics
Restart p.o. when cleared by speech
IV fluids
[place]-defer to psychiatry
[place] levels in the morning
[facility] he has a bed only on Sunday for the patient per discussion with case management
Assessment / Plan
Assessment / Plan
84-year-old with trip and fall down [address] -cervical spine-degenerative changes. No fracture. Beam hardening artifact. Likely enlarged right lobe of thyroid
Right shoulder-mild impacted fracture at the base of the head and neck of the proximal right humerus with some mild splaying of several small fracture fragments.
Head CT-no acute abnormality
Sleepy but able to communicate.
Cardiovascular sternal sounds appreciated
Chest clear to auscultation
Right shoulder with mild edema noted tenderness
# Traumatic right shoulder fracture-nonoperative management with sling immobilization to right upper extremity, nonweightbearing right upper extremity, ice for edema control and pain control. Digital range of motion as tolerated. Follow-up as an
outpatient in 1 week with x-rays for position check. If there is interval displacement of the fracture surgical management may be further discussed at that time per orthopedics.
Pain control with Vicodin
Lidocaine patch
# Difficulty swallowing-waxing and waning for mental status secondary to dementia. N.p.o. with IV fluids today restart diet when cleared by speech
# Leukocytosis-secondary to pneumonia-started on ceftriaxone and doxycycline
# Left lower lobe pneumonia-possibly aspiration related vs CAP-continue ceftriaxone and Doxy
# Acute kidney injury-stop IV fluids MUSA resolved
# Coronary artery disease with history of CABG- Plavix, metoprolol.
# Parkinson disease-continue Sinemet
# Hyperlipidemia-continue statin
# Hypertension-Continue metoprolol. Hold losartan
# History of polio
# Dementia with behavioral disturbance
# Right lobe of thyroid-ultrasound as outpatient. Normal TSH
# Bipolar disease- Continue Seroquel, Seroquel dose in the morning also reduced from 100 mg daily to 50 mg daily
[place]- [place] levels high. [place] changed to 300 mg in the morning from 300 mg twice daily and 150 in the evening on 04/21/25- Stopped on 04/22/25.
# GERD/PUD-does not seem to be on H2 blockers or PPIs outpatient
# Diverticulosis
# Ex Smoker
# DVT prophylaxis-SCDs
# DNR
Discussed with nursing
Discussed with at bedside
Discussed with psychiatry
Nursing on form signed
Discussed with case management
time 40 min
Part of this note was created using voice recognition system. Occasional wrong word or��sound alike� substitutions may have inadvertently occurred due to the inherent limitations of voice recognition software. If noted kindly bring it to my
attention for correction.
Anticipated Discharge: 24 - 48 hours
Subjective/Interval History
-
Date of Service: April 22, 2025
Objective Data
-
Labs:
Laboratory Results
04/22/25
05:02
WBC 14.4 H
Hgb 10.4 L
Hct 31.4 L
Plt Count 182
Vital Signs:
Vital Signs
Temp Pulse Resp BP Pulse Ox
98.3 F 97 16 147/81 95
04/22/25 15:00 04/22/25 15:00 04/22/25 15:00 04/22/25 15:00 04/22/25 15:00
I&O
04/21/25 04/22/25 04/23/25
06:59 06:59 06:59
Intake Total 1300 / 1300 90 / 90
Output Total 200 / 200
Balance 1300 / 1300 -110 / -110
[2025-04-22] MEDS: PEPCID PO (17:05)
--- NOTE | 2025-04-22 18:46 | PTCARENOTE ---
Pt restless during the early afternoon, pulling off arm sling and gown multiple times. Pt cleaned and repostioned prn. During speech evaluation by therapist, PRN [place] administered to pt crushed in applesauce. Pt repositioned by staff with ice
applied to R shoulder. Pt appears comfortable in bed at this time. Milk&molasses enema administered to pt. Pt had large BM. IV fluids ordered and running @60mls/hr. POC ongoing.
[2025-04-22] MEDS: FLUSH (NSS) 10 FLUSH IV ×2 (22:16→22:17)
[2025-04-22] MEDS: LIPITOR PO (22:17)
[2025-04-22] MEDS: STERILE WATER FOR INJECTION 10 ML IV (22:18)
[2025-04-22] MEDS: ROCEPHIN 1000 MG IV (22:18)
[2025-04-22] MEDS: REMOVE LIDOCAINE PATCH REMOVE (22:18)
[2025-04-22] MEDS: VITAMIN D3 (cholecalciferol) PO (22:18)
[2025-04-22] MEDS: TOPROL XL PO (22:55)
[2025-04-22 23:00] VITALS: BP 152/76
[2025-04-23 06:01] LABS: Hematocrit 29.4 % (39.0-52.0); Hemoglobin 10.1 g/dL (13.0-18.0); Mean Corp Hgb Conc. 34.4 g/dL (33.0-37.0); Mean Corpuscular Volume 96.1 fL (80.0-94.0); Platelet Count 214 10^3/uL (130-400); Red Cell Dist. Width 11.9 % (11.5-14.5)
[2025-04-23 06:30] LABS: Blood Urea Nitrogen 28 mg/dl (9-20); Calcium 9.6 mg/dl (8.4-10.2); Carbon Dioxide 24 mmol/L (22-30); Chloride 115 mmol/L (98-107); Estimated Creatinine Clearance 44 ml/min; Glucose 162 mg/dl (70-99); Lithium 0.9 mmol/L (0.6-1.2); Potassium 4.3 mmol/L (3.5-5.1); Sodium 145 mmol/L (135-145); eGFR > 60.00
[2025-04-23 06:48] LABS: Vitamin D, 25-OH*** 40.7 ng/mL (30-80)
[2025-04-23 07:37] LABS: Folate 9.7 ng/ml (2.76-20); Vitamin B12 333 pg/ml (239-931)
[2025-04-23] MEDS: THERAGRAN 1 TABLET PO (08:04)
[2025-04-23] MEDS: VIBRAMYCIN 100 MG PO ×2 (08:04→21:00)
[2025-04-23] MEDS: REQUIP 0.25 MG PO (08:04)
[2025-04-23] MEDS: PLAVIX 75 MG PO (08:04)
[2025-04-23] MEDS: SEROQUEL 50 MG PO (08:04)
[2025-04-23] MEDS: TYLENOL 500 MG PO ×2 (08:05→21:02)
[2025-04-23] MEDS: SINEMET 25-100 1 TABLET PO (08:05)
[2025-04-23] MEDS: SENOKOT-S 1 TABLET PO ×2 (08:05→21:00)
[2025-04-23] MEDS: MIRALAX 17 GRAMS PO (08:06)
[2025-04-23] MEDS: LIDOCAINE 4% PATCH 1 PATCH TOPICAL (08:06)
[2025-04-23 08:44] VITALS: BP 154/80
[2025-04-23] MEDS: D5LR 1000 IV (09:10)
[2025-04-23 09:21] VITALS: BMI 27.4
[2025-04-23] MEDS: VITAMIN B-12 1000 MCG PO (09:27)
--- NOTE | 2025-04-23 10:55 | CM ---
Addendum entered by Madhuri Valverde 04/23/25 11:02:
Freddie
Freddie Report: [phone]
Ambulance transport will be arranged at discharge.
Original Note:
Documentation of Medical Evaluation form faxed to Freddie.
Requested Rx for hospital bed, PT and OT evaluations for [facility].
Rx to be sent to [facility]. Updated [facility] for preferred pharmacy.
--- NOTE | 2025-04-23 10:56 | W.PN.UPDATE ---
Addendum entered and electronically signed by Ambar Anderson MD 04/23/25 11:59:
b12 vit d and folate are okay
Original Note:
Update Note
Progress Note Update
patient seen chart reviewed. spoke with nursing and with patient's . the patient was in good spirits. he does remain confused but was pleasantly so. he was a little sleepy and i considered whether to cut am seroquel from 50 mg to 25 mg. i
discussed this with who felt strongly that it should remain as is. she anticipates when he returns to [facility] he will perk up and given the level of aggression he has demonstrated in his life she does not want to jeopardize his return to
[place] with an episode of aggression. i informed her that lithium level is o.9 and i would not restart until level is about o.6 we also discussed whether to continue lithium. she feels strongly that we should again given his potential in past for
aggression. i did warn her that in elderly the risk of tox is higher. she should NOT change his dose as she did recently AND if he is not eating drinking has an infection or is getting overheated it should be checked very frequently. to start would
do weekly for two weeks then every other week . check lithium level in the am. will restart possibly tomorrow at 150 g dose qhs. . will continue to follow
--- NOTE | 2025-04-23 11:37 | W.PN.HOSP.TC ---
Today's Communication/Plan
-
CW ABX
Follow WBC
VSE today ;start on IDDSI 6 diet
DC planning
Assessment / Plan
Assessment / Plan
84-year-old with trip and fall down [address] -cervical spine-degenerative changes. No fracture. Beam hardening artifact. Likely enlarged right lobe of thyroid
Right shoulder-mild impacted fracture at the base of the head and neck of the proximal right humerus with some mild splaying of several small fracture fragments.
Head CT-no acute abnormality
Sleepy but able to communicate.
Cardiovascular sternal sounds appreciated
Chest clear to auscultation
Right shoulder with mild edema noted tenderness
# Traumatic right shoulder fracture-nonoperative management with sling immobilization to right upper extremity, nonweightbearing right upper extremity, ice for edema control and pain control. Digital range of motion as tolerated. Follow-up as an
outpatient in 1 week with x-rays for position check. If there is interval displacement of the fracture surgical management may be further discussed at that time per orthopedics.
Pain control with Vicodin
Lidocaine patch
# Difficulty swallowing-waxing and waning for mental status secondary to dementia. Seen by speech and cleared for IDDSI 6 diet. VSE recommended
# Leukocytosis-secondary to pneumonia-started on ceftriaxone and doxycycline-continue to follow-
# Left lower lobe pneumonia-possibly aspiration related vs CAP-continue ceftriaxone and Doxy
# Acute kidney injury-stop IV fluids MUSA resolved
# Coronary artery disease with history of CABG- Plavix, metoprolol.
# Parkinson disease-continue Sinemet
# Hyperlipidemia-continue statin
# Hypertension-Continue metoprolol. Hold losartan
# History of polio
# Dementia with behavioral disturbance-calm today
# Right lobe of thyroid-ultrasound as outpatient. Normal TSH
# Bipolar disease- Continue Seroquel, Seroquel dose in the morning also reduced from 100 mg daily to 50 mg daily
[place]- [place] levels high. [place] changed to 300 mg in the morning from 300 mg twice daily and 150 in the evening on 04/21/25- Stopped on 04/22/25.
# GERD/PUD-does not seem to be on H2 blockers or PPIs outpatient
# Diverticulosis
# Ex Smoker
# DVT prophylaxis-SCDs
# DNR
Discussed with nursing
Discussed with psychiatry
Discussed with case management
DC to rehab in a.m. if remains stable.
Part of this note was created using voice recognition system. Occasional wrong word or��sound alike� substitutions may have inadvertently occurred due to the inherent limitations of voice recognition software. If noted kindly bring it to my
attention for correction.
Anticipated Discharge: Within 24 hours
Subjective/Interval History
-
Date of Service: April 23, 2025
Alert and oriented to place and person.
Denies shortness of breath.
Right shoulder fracture pain is okay.
Denies nausea vomiting.
Objective Data
-
Labs:
Laboratory Results
04/23/25
05:18
WBC 19.2 H
Hgb 10.1 L
Hct 29.4 L
Plt Count 214
Sodium 145
Potassium 4.3
Chloride 115 H
Carbon Dioxide 24
BUN 28 H
Creatinine 1.1
Glucose 162 H
Calcium 9.6
Vital Signs:
Vital Signs
Temp Pulse Resp BP Pulse Ox
97.7 F 93 17 154/80 95
04/23/25 08:44 04/23/25 08:44 04/23/25 08:44 04/23/25 08:44 04/23/25 08:44
I&O
04/22/25 04/23/25 04/24/25
06:59 06:59 06:59
Intake Total 90 / 90 320 / 320
Output Total 200 / 200
Balance -110 / -110 320 / 320
Physical Exam
-
General: No Apparent Distress
HEENT: Moist Mucous Membranes
Respiratory: Crackles (Left base) and Non Labored Respirations; Negative Wheezes or Accessory Resp Muscle Use
Cardiac: Regular Rhythm and S1/S2
GI: Soft
Musculoskeletal: Other (Right arm in sling)
Neuro: AO x 3
Psych: Calm
Data Reviewed
-
Labs: Labs Reviewed by me
--- NOTE | 2025-04-23 12:52 | PTOTSP ---
Videofluoroscopic swallow study
Limited assessment of solids due to episode of emesis prior to swallowing pureed trials. At least mild-moderate oral dysphagia and WFL pharyngeal swallow for consistencies assessed. Continue prior established POC.
Recommend:
1. IDDSI 6 Soft/Bite Sized, Thin Liquids
2. Medications: as best tolerated
3. FULL SUPERVISION; Assistance as needed given R arm in sling
4. Strategies: slow rate, reduce distractions with meals, reflux precautions
5. Brief dysphagia f/u for caregiver instruction in compensations and reassessment of swallowing given fluctuating dysphagia severity this admission
--- NOTE | 2025-04-23 13:06 | W.PN.UPDATE ---
Update Note
Progress Note Update
Patient is in need of a semi-electric hospital bed wiht foam mattress due to the need to elevate head of bed above 30 degrees to prevent aspiration
and to facilitate frequent repositioning to prevent bed ulcers and pressure points.
--- NOTE | 2025-04-23 13:53 | CM ---
Call placed to [facility], which is now doing busy as [facility]([phone]). Spoke To Zaria. She was in receipt of the referral. Verified that the bed needs to be delivered to [facility] at [address], [place]. [address].
I clarified the contact for [facility] should be Huong Osman at [phone]. I provided contact information for patient's . Made Zaria aware that we would like to have bed delivered tomorrow morning, as bed needs to be there prior to the patient
arriving. Zaria stated that they normally deliver oxygen first, but do take requests for a morning delivery but can not guarantee. She stated that CM can call back in 2 hrs to confirm that they received the requested physician documentation that was
faxed to them . Update to CM.
--- NOTE | 2025-04-23 14:19 | PTCARENOTE ---
Pt moved from 339-2 to room 324 due to agitation. Psych made aware and new order Seroquel 25mg q 6hrs for agitation. MD and aware of room change.
[2025-04-23] MEDS: SEROQUEL 25 MG PO (14:54)
[2025-04-23] MEDS: NORCO 7.5/325 1 TABLET PO (14:54)
--- NOTE | 2025-04-23 14:56 | PTCARENOTE ---
at 1454, patient agitated and c/o right shoulder pain, (unable to rate pain level). transferred pt to reclining chair and administered PRN Seroquel and Noco and able to sleep for about 2 hours afterwards. will continue to monitor.
[2025-04-23 15:00] VITALS: BP 132/72
[2025-04-23] MEDS: PEPCID 20 MG PO (17:24)
[2025-04-23 20:40] LABS: Glucose - Point of Care 156 mg/dl (70-99)
[2025-04-23] MEDS: REMOVE LIDOCAINE PATCH 1 PATCH REMOVE (20:59)
[2025-04-23] MEDS: STERILE WATER FOR INJECTION 10 ML IV (20:59)
[2025-04-23] MEDS: ROCEPHIN 1000 MG IV (20:59)
[2025-04-23] MEDS: SEROQUEL 200 MG PO (21:01)
[2025-04-23] MEDS: TOPROL XL 25 MG PO (21:02)
[2025-04-23] MEDS: FLUSH (NSS) 1 FLUSH IV ×2 (21:08→21:09)
[2025-04-23 23:08] VITALS: BP 140/76
[2025-04-24 06:42] LABS: Hematocrit 31.4 % (39.0-52.0); Hemoglobin 10.4 g/dL (13.0-18.0); Mean Corp Hgb Conc. 33.1 g/dL (33.0-37.0); Mean Corpuscular Volume 99.1 fL (80.0-94.0); Platelet Count 261 10^3/uL (130-400); Red Cell Dist. Width 12.2 % (11.5-14.5)
[2025-04-24 07:03] LABS: Lithium 0.6 mmol/L (0.6-1.2)
[2025-04-24 07:40] VITALS: BP 144/75
[2025-04-24] MEDS: LIDOCAINE 4% PATCH 1 PATCH TOPICAL (08:19)
[2025-04-24] MEDS: MIRALAX 17 GRAMS PO (08:20)
[2025-04-24] MEDS: SENOKOT-S 1 TABLET PO (08:21)
[2025-04-24] MEDS: VIBRAMYCIN 100 MG PO (08:21)
[2025-04-24] MEDS: PLAVIX 75 MG PO (08:21)
[2025-04-24] MEDS: TYLENOL 500 MG PO (08:21)
[2025-04-24] MEDS: SEROQUEL 50 MG PO (08:22)
[2025-04-24] MEDS: SINEMET 25-100 1 TABLET PO (08:22)
[2025-04-24] MEDS: THERAGRAN 1 TABLET PO (08:28)
[2025-04-24] MEDS: REQUIP 0.25 MG PO (08:28)
[2025-04-24] MEDS: VITAMIN B-12 1000 MCG PO (08:29)
--- NOTE | 2025-04-24 09:04 | CM ---
Addendum entered by Heidi Cardoso 04/24/25 16:09:
Elizabeth notified
Addendum entered by Heidi Cardoso 04/24/25 15:37:
Hospital bed arrived at [facility]
Spoke with Huong - will accept patient for 5pm transport
IMM explained & signed. In chart
tt hospitalist
Addendum entered by Heidi Cardoso 04/24/25 13:31:
spoke with Osito who is delivery table feeder - states bed will be delivered in an hour & half he has one stop on the way to [facility]
Updated Huong Osman at [facility] -
she states she will call back CM regarding acceptance today
Addendum entered by Heidi Cardoso 04/24/25 10:50:
call from Huong at [facility], she was on phone with Charito from [facility] stating they did not receive physician documentation of need for hospital bed
Faxed to Charito at [phone] she received & will deliver RALPH within an hour and half
Original Note:
Called [facility]
stated that the hospital bed will be delivered today to [facility]
they will call CM once delivered. Gave her my #
Spoke with Huong at [facility] and updated.
PLAN: [facility] once the hospital bed delivered today
[facility] Report: [phone]
transportation forms on chart
--- NOTE | 2025-04-24 11:23 | W.PN.UPDATE ---
Update Note
Progress Note Update
patient seen chart reviewed. spoke with nursing , pharmacy and dr renae. at bedside. patient has had a tumultuous 24 hours. periods of agitation. he pulled out iv at some point . he was lying fully naked in the bed. expressed concern
about his not eating or drinking without an iv but i gave him a large glass of ice water which he requested and he drank more than half of it so it seems he is able to take po. this is a concern given plan to resume lithium. lithium level this am is
o.6. this or slightly lower would be a good maintenance level for him. and i had discussed resuming lithium. she understands there is some concern given hx of toxicity but feels it has been very effective for him. explained to her that fluid
intake , interactions with other meds , blood level will need to be monitored. discussed w dr renae dc losartan which can interact w lithium as he has not gotten it for a few days and bp is ok. if he need bp meds care will need to be taken given
lithium which will start with 150 mg dose. patient was actually pleasant although he remains very confused. he was able to with much help cooperate with aide and this curriculum writer to get up and get into a chair. PT and OT are coming to assess this am.
dr renae believes dc to [facility] may be as soon as this afternoon. psych will follow if he remains. if he leaves lithium level should bedone in three days or so. will order for sunday if he remains.
--- NOTE | 2025-04-24 11:29 | VATNOTE ---
VAT rounds: pt noted to have pulled out his IV when this nurse entered the room. Chart reviewed and discussed with PCN. MD note states that pt will potentially be discharged this AM, will hold on replacing IV at this time. PCN to notify VAT if pt
needs his IV replaced.
[2025-04-24] MEDS: ESKALITH 150 MG PO (12:01)
--- NOTE | 2025-04-24 13:10 | CM ---
Call placed to [facility] ([phone]), asked to speak to a Resist Coater Developer regarding delivery of hospital bed which is supposed to be delivered before 4pm. Transferred to Brandi in Patient Support, She texted someone in the delivery area who states
that this is the next stop on their delivery route. She could not give me an exact time. I stated that the bed needs to be delivered well before 4pm, as the Hospital Bed needs to be in place at [facility] in [place], prior to the patient arriving. I
made Brandi aware that the facility will not accept the patient after 4pm, and if he is not transferred today then they will not accept the patient until Sunday and the patient is stable for discharge today. Brandi will call Huong Osman
([phone])at [facility] who is the Accounts Supervisor to update her on the status of the bed delivery. Update to . We will await to hear back from Huong that bed was delivered so transport can be arranged for patient.
[2025-04-24 13:48] VITALS: BP 157/76; PULSE 104; O2SAT 99
--- NOTE | 2025-04-24 14:50 | W.PN.HOSP.TC ---
Today's Communication/Plan
-
DC
Assessment / Plan
Assessment / Plan
84-year-old with trip and fall down [address] -cervical spine-degenerative changes. No fracture. Beam hardening artifact. Likely enlarged right lobe of thyroid
Right shoulder-mild impacted fracture at the base of the head and neck of the proximal right humerus with some mild splaying of several small fracture fragments.
Head CT-no acute abnormality
# Traumatic right shoulder fracture-nonoperative management with sling immobilization to right upper extremity, nonweightbearing right upper extremity, ice for edema control and pain control. Digital range of motion as tolerated. Follow-up as an
outpatient in 1 week with x-rays for position check. If there is interval displacement of the fracture surgical management may be further discussed at that time per orthopedics.
Pain control with Vicodin
Lidocaine patch
# Difficulty swallowing-waxing and waning for mental status secondary to dementia. Seen by speech and cleared for IDDSI 6 diet. VSE noted
# Leukocytosis-secondary to pneumonia-started on ceftriaxone and doxycycline-continue to follow-improving
# Left lower lobe pneumonia-possibly aspiration related vs CAP-continue ceftriaxone and Doxy
# Acute kidney injury-stop IV fluids MUSA resolved
# Coronary artery disease with history of CABG- Plavix, metoprolol.
# Parkinson disease-continue Sinemet
# Hyperlipidemia-continue statin
# Hypertension-Continue metoprolol. Hold losartan
# History of polio
# Dementia with behavioral disturbance-calm today as well
# Right lobe of thyroid-ultrasound as outpatient. Normal TSH
# Bipolar disease- Continue Seroquel, Seroquel dose in the morning also reduced from 100 mg daily to 50 mg daily
Daphne- Daphne levels high. [place] changed to 300 mg in the morning from 300 mg twice daily and 150 in the evening on 04/21/25- Stopped on 04/22/25.
Restarted by psychiatry today
# GERD/PUD-does not seem to be on H2 blockers or PPIs outpatient
# Diverticulosis
# Ex Smoker
# DVT prophylaxis-SCDs
# DNR
Discussed with nursing
Discussed with psychiatry
Discussed with case management
DW at bedside - declines SNF placement. 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
Medically stable for DC today
Part of this note was created using voice recognition system. Occasional wrong word or��sound alike� substitutions may have inadvertently occurred due to the inherent limitations of voice recognition software. If noted kindly bring it to my
attention for correction.
Anticipated Discharge: Today
Subjective/Interval History
-
Date of Service: April 24, 2025
Pleasantly confused.
at bedside- no agitation .
Pain from shoulder present but pt not able to communicate.
Tolerating diet.
Removed iv last night
Objective Data
-
Labs:
Laboratory Results
04/24/25
06:12
WBC 17.9 H
Hgb 10.4 L
Hct 31.4 L
Plt Count 261 D
Vital Signs:
Vital Signs
Temp Pulse Resp BP Pulse Ox
98.2 F 97 18 144/75 95
04/24/25 07:40 04/24/25 07:40 04/24/25 07:40 04/24/25 07:40 04/24/25 07:40
I&O
04/23/25 04/24/25 04/25/25
06:59 06:59 06:59
Intake Total 320 / 320 840 / 840
Balance 320 / 320 840 / 840
Physical Exam
-
General: Comfortable
Respiratory: Clear to Auscultation and Non Labored Respirations; Negative Accessory Resp Muscle Use
Cardiac: Regular Rhythm and S1/S2
GI: Soft
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
Neuro: Awake, Alert and Oriented (self and person)
Psych: Calm and Confused; Negative Agitated
Data Reviewed
-
Labs: Labs Reviewed by me
[2025-04-24 15:37] VITALS: BP 147/77
== END 2025-04-24 16:25 | disposition home or self-care (01) | DRG 562 ==
LOC: 3 WEST ACU 18:39
PROVIDERS: Hospitalist; Physician Assistant; Psychiatry & Neurology Psychiatry; ADMITTING PHYSICIAN Hospitalist; ATTENDING PHYSICIAN Internal Medicine; CONSULT PHYSICIAN Psychiatry & Neurology Psychiatry; EMERGENCY PHYSICIAN Emergency Medicine; FAMILY PHYSICIAN Internal Medicine; OTHER PHYSICIAN Orthopaedic Surgery
DX: S42.201A Unspecified fracture of upper end of right humerus, initial encounter for closed fracture (principal); J18.9 Pneumonia, unspecified organism; J69.0 Pneumonitis due to inhalation of food and vomit; F02.83 Dementia in other diseases classified elsewhere, unspecified severity, with mood disturbance; F31.30 Bipolar disorder, current episode depressed, mild or moderate severity, unspecified; F02.818 Dementia in other diseases classified elsewhere, unspecified severity, with other behavioral disturbance; N17.9 Acute kidney failure, unspecified; I25.10 Atherosclerotic heart disease of native coronary artery without angina pectoris; G20.A1 Parkinson's disease without dyskinesia, without mention of fluctuations; I10 Essential (primary) hypertension; E78.00 Pure hypercholesterolemia, unspecified; K21.9 Gastro-esophageal reflux disease without esophagitis; N40.0 Benign prostatic hyperplasia without lower urinary tract symptoms; G89.29 Other chronic pain; M54.9 Dorsalgia, unspecified; D72.829 Elevated white blood cell count, unspecified; G25.81 Restless legs syndrome; R13.10 Dysphagia, unspecified; W10.8XXA Fall (on) (from) other stairs and steps, initial encounter; Y93.9 Activity, unspecified; Y92.71 Barn as the place of occurrence of the external cause; Z66 Do not resuscitate; Z95.1 Presence of aortocoronary bypass graft; Z79.891 Long term (current) use of opiate analgesic; Z87.891 Personal history of nicotine dependence; Z87.11 Personal history of peptic ulcer disease; Z87.19 Personal history of other diseases of the digestive system; Z86.12 Personal history of poliomyelitis; Z88.8 Allergy status to other drugs, medicaments and biological substances; Z79.02 Long term (current) use of antithrombotics/antiplatelets
CPT/HCPCS: 70450; 71046; 72125; 73030; 74019; 74230; 80048; 80053; 80178; 81003; 81015; 82306; 82607; 82746; 82962; 84443; 85025; 85027; 87086; 92526; 92610; 92611; 93005; 97163; 97530; 99285